=== PATIENT | female | born 1995 | race Caucasian/White ===

== ENCOUNTER 2022-12-06 18:10 | Inpatient (IN) | payer OTHER, SELFPAY ==
[2022-12-06] MEDS: Lactated Ringers 1,000 ML 50 ML IV (19:17)
[2022-12-06 19:33] LABS: ROM Internal Control Test YES-OK TO RESULT pt. (Internal QC)
[2022-12-06 19:34] LABS: ROM Patient Test POSITIVE (Negative)
[2022-12-06 20:21] VITALS: BMI 37.8
[2022-12-06 20:33] LABS: Absolute Lymphocyte Count 1.97 X10^3/uL (0.83-4.51); Absolute Neutrophil Count 8.8 X10^3/uL (2.0-7.7); Basophil# 0.04 X10^3/uL; Basophil% 0.3 % (0-1); Eosinophil# 0.15 X10^3/uL; Eosinophils% 1.3 % (0-5); Hematocrit 35.4 % (37-47); Hemoglobin 11.5 g/dL (12.0-15.0); Lymphocyte # 1.97 X10^3/ul (0.83-4.51); Mean Corp Hgb Conc 32.5 g/dL (32-36); Mean Corpuscular Hgb 28.7 pg (27.0-32.0); Mean Corpuscular Volume 88.3 fL (81-99); Mean Platelet Vol. 11.1 fl (6.2-12.0); Monocyte# 0.57 X10^3/uL; Monocyte% 4.9 % (0-10); NRBC Flagged by Analyzer 0 % (0-5); Neutrophil # 8.78 X10^3/uL (2.7-7.7); Neutrophil % 75.9 % (47-70); Platelet Count 184 K/mm3 (150-450); RBC Distribution Width CV 13.4 % (11.6-14.6); RBC Distribution Width SD 43.6 fl (35.1-43.9); Red Blood Count 4.01 M/mm3 (4.2-5.4); White Blood Count 11.6 K/mm3 (4.4-11.0)
[2022-12-06 21:01] LABS: Bedside Glucose 88 mg/dL (74-106)
[2022-12-06] MEDS: miSOPROStol 25 MCG TABLET PO (21:13)
[2022-12-06 21:15] VITALS: BP 147/67; PULSE 96; TEMP 36.6; O2SAT 98
[2022-12-06 21:17] VITALS: PULSE 88; O2SAT 97
[2022-12-06 21:55] LABS: Bedside Glucose 98 mg/dL (74-106)
[2022-12-07] VITALS (69 sets, daily range): BP systolic 111–165; BP diastolic 57–93; PULSE 89–135; TEMP 36.1–36.8; O2SAT 91–100
[2022-12-07] MEDS: miSOPROStol 25 MCG TABLET PO ×2 (01:21→05:25)
[2022-12-07 01:45] LABS: Bedside Glucose 87 mg/dL (74-106)
[2022-12-07 05:51] LABS: Bedside Glucose 80 mg/dL (74-106)
--- NOTE | 2022-12-07 08:46 | US_ITS ---
STUDY: SECOND AND THIRD TRIMESTER OBSTETRICAL ULTRASOUND - LIMITED REASON FOR EXAM: Female, 27 years old NATALIA, size, presenting part LMP: 03/06/2022. PRIOR ULTRASOUND: None. TECHNIQUE: Transabdominal TECHNICAL QUALITY: Adequate. FINDINGS: There is a single intrauterine fetus. The fetus is in a cephalic presentation. There is demonstrated cardiac activity with a heart rate of 153 bpm. There is a normal amniotic fluid volume. The largest amniotic fluid pocket measures 2.7 cm. The amniotic fluid index (NATALIA) is 7.5 cm. The placenta is fundal in location. There are Grade 3 placental changes. The cervix length was not measured due to head positioning. BIOMETRY: BPD: 9.6 cm: 39 weeks, 1 days HC: 35 cm: 40 weeks, 5 days AC: 36.4 cm: 40 weeks, 2 days FL: 7.9 cm: 40 weeks, 1 days Age by LMP: 39 weeks, 3 days. SHELLY by LMP: 12/11/2022. age by current US: 40 weeks, 0 days. SHELLY by current US: 12/07/2022. Estimated weight: 4013 grams, +/- 602 grams, 86 percentile. US/OB Limited With Biometrics IMPRESSION: Single live uterine gestation with a mean gestational age of 40 weeks. Electronically Signed: Lefty Butterfield MD at 10:13 [facility] ,
[2022-12-07 10:10] LABS: Bedside Glucose 118 mg/dL (74-106)
[2022-12-07] MEDS: Oxytocin 15 Units/NS 250ml 15 UNITS/250 ML IV.SOLN 2 UNITS IV (10:15)
--- NOTE | 2022-12-07 11:18 | PN_ITS ---
Progress Note Patient brought in to hospital after 33 hours of ruptured membranes confirmed by NTZ stick at home, and ROM test in hospital. FHR category I. # doses of oral cytotec given and plan for Pitcoin. Patient requesting to eat and given a light fat free meal. Patient pressing for use of Dueñas bulb as evidently coached by her integrity director. Advised I did not think it prudent after 48 hours of ROM to use a Foreign body as I felt it would accelerate the chances of chorioamnionitis, and risks of chorio reviewed including infection, uterine inefficiency leading to hemorrhage etc. After explaining all above, patient appeared to understand my hesitation. So far FHR catgory I throughout.
[2022-12-07 11:35] LABS: Bedside Glucose 127 mg/dL (74-106)
[2022-12-07 13:05] LABS: Bedside Glucose 86 mg/dL (74-106)
[2022-12-07 14:06] LABS: Bedside Glucose 117 mg/dL (74-106)
[2022-12-07 15:36] LABS: Bedside Glucose 82 mg/dL (74-106)
[2022-12-07 16:25] LABS: Bedside Glucose 106 mg/dL (74-106)
--- NOTE | 2022-12-07 18:27 | PCM.HP.OB ---
HPI - General General Date of Admission: 12/06/22 Date of Service: 12/07/22 Chief Complaint: Ruptured membranes HPI Narrative TORY HART, is a 27 F who presents on the recommendation of Chey;A medical anthropology director with whom she had been receiving care because her membranes have been ruptured at home for 33 hours and she has not made much progress into active labor. Fluid has been clear. movements have continued. There has been no bleeding. She has received all her care with this medical anthropology director however said senior agricultural assistant states that her glucose tolerance test was abnormal making her gestational diabetic and that she made drastic changes to her diet following which her fasting and 2-hour postprandial sugars were normal. She was unable to give me actual numbers except for the test numbers which were 160 and 159. She reported only one value for the 3-hour glucose tolerance test. Membrane rupture was confirmed with nitrazine swab. Membranes ruptured at 9 AM on December 05 and she presented in the evening of December 06 at approximately 33 hours apparently the patient had declined to come into the hospital before and had tried nipple stimulation movement etc. Maternal Data Information Final SHELLY: 12/11/22 Gestational age: [address] [facility] Medical History (Updated 12/07/22 @ 18:[address] Roxann Gonzalez MD) Gestational diabetes Home Medications [id number] 1 mg tablet 1 tab PO DAILY 12/06/22 [History Last Taken 12/06/22] Allergy/AdvReac Type Severity Reaction Status Date / Time No Known Allergies Allergy Verified 12/06/22 20:10 Surgical History (Updated 12/06/22 @ 20:13 by Fifi Reilly) [place] teeth removed Social History Smoking Status: Never smoker History Elective abortions Hx Para 0 Spontaneous abortions Hx # Term Pregnancies Ectopic pregnancies Hx # Pregnancies Multiple births # of living children NST FHR Rate Baby A Baseline: 140 Variability:: Moderate Accelerations:: 15 x 15 Decelerations:: None NST Reactive:: Yes FHR Category:: Category I ROS ROS Narrative Review of systems is entirely negative Vital Signs Vital Signs Vital Signs: 12/06/22 21:15 12/06/22 21:15 12/06/22 21:17 Temperature Temperature Source Pulse Rate 96 88 Blood Pressure 147/67 H BP Systolic 147 BP Diastolic 67 Pulse Ox 12/06/22 21:17 12/06/22 21:15 12/06/22 21:15 Temperature Temperature Source Temporal Pulse Rate Blood Pressure BP Systolic BP Diastolic Pulse Ox 97 98 12/06/22 21:15 12/07/22 00:11 12/07/22 00:11 Temperature 97.9 F 97.3 F L Temperature Source Temporal Pulse Rate Blood Pressure BP Systolic BP Diastolic Pulse Ox 12/07/22 01:20 12/07/22 01:20 12/07/22 01:20 Temperature Temperature Source Pulse Rate 104 H Blood Pressure 120/62 BP Systolic 120 BP Diastolic 62 Pulse Ox 96 12/07/22 01:20 12/07/22 03:08 12/07/22 03:08 Temperature Temperature Source Temporal Pulse Rate 89 Blood Pressure BP Systolic BP Diastolic Pulse Ox 98 12/07/22 03:08 12/07/22 04:12 12/07/22 04:12 Temperature 97.3 F L Temperature Source Temporal Pulse Rate Blood Pressure BP Systolic BP Diastolic Pulse Ox 97 12/07/22 04:12 12/07/22 05:26 12/07/22 05:26 Temperature 97.1 F L Temperature Source Pulse Rate 106 H Blood Pressure 141/86 H BP Systolic 141 BP Diastolic 86 Pulse Ox 12/07/22 05:29 12/07/22 05:29 12/07/22 05:26 Temperature Temperature Source Temporal Pulse Rate 98 Blood Pressure BP Systolic BP Diastolic Pulse Ox 98 12/07/22 05:26 12/07/22 06:26 12/07/22 06:26 Temperature 97.9 F 97.0 F L Temperature Source Temporal Pulse Rate Blood Pressure BP Systolic BP Diastolic Pulse Ox 12/07/22 08:06 12/07/22 08:06 12/07/22 08:06 Temperature Temperature Source Pulse Rate 100 Blood Pressure 131/89 H BP Systolic 131 BP Diastolic 89 Pulse Ox 98 12/07/22 08:06 12/07/22 08:43 12/07/22 08:43 Temperature 97.7 F L 97.7 F L Temperature Source Temporal Pulse Rate Blood Pressure BP Systolic BP Diastolic Pulse Ox 12/07/22 09:43 12/07/22 09:43 12/07/22 09:45 Temperature 97.9 F Temperature Source Temporal Pulse Rate Blood Pressure 129/83 H BP Systolic 129 BP Diastolic 83 Pulse Ox 12/07/22 09:45 12/07/22 09:45 12/07/22 10:58 Temperature Temperature Source Pulse Rate 120 H Blood Pressure 137/71 H BP Systolic 137 BP Diastolic 71 Pulse Ox 97 12/07/22 10:58 12/07/22 10:58 12/07/22 10:59 Temperature Temperature Source Temporal Pulse Rate 109 H 117 H Blood Pressure BP Systolic BP Diastolic Pulse Ox 12/07/22 10:59 12/07/22 10:58 12/07/22 12:36 Temperature 97.7 F L Temperature Source Pulse Rate Blood Pressure 135/93 H BP Systolic 135 BP Diastolic 93 Pulse Ox 98 12/07/22 12:37 12/07/22 12:37 12/07/22 12:36 Temperature Temperature Source Temporal Pulse Rate 117 H Blood Pressure BP Systolic BP Diastolic Pulse Ox 98 12/07/22 12:36 12/07/22 12:36 12/07/22 13:06 Temperature 97.2 F L Temperature Source Pulse Rate Blood Pressure 130/81 H BP Systolic 130 BP Diastolic 81 Pulse Ox 99 12/07/22 13:06 12/07/22 14:17 12/07/22 14:17 Temperature 97.5 F L Temperature Source Temporal Pulse Rate 115 H Blood Pressure BP Systolic BP Diastolic Pulse Ox 12/07/22 14:19 12/07/22 14:19 12/07/22 15:08 Temperature Temperature Source Pulse Rate 96 Blood Pressure 131/77 H 115/59 L BP Systolic 131 115 BP Diastolic 77 59 Pulse Ox 12/07/22 15:08 12/07/22 15:08 12/07/22 15:08 Temperature Temperature Source Temporal Pulse Rate 92 Blood Pressure BP Systolic BP Diastolic Pulse Ox 98 12/07/22 15:08 12/07/22 15:59 12/07/22 15:59 Temperature 98.2 F Temperature Source Temporal Pulse Rate Blood Pressure 154/82 H BP Systolic 154 BP Diastolic 82 Pulse Ox 12/07/22 15:59 12/07/22 15:59 12/07/22 16:53 Temperature 97.0 F L Temperature Source Pulse Rate 102 H Blood Pressure 141/74 H BP Systolic 141 BP Diastolic 74 Pulse Ox 12/07/22 16:53 12/07/22 16:53 12/07/22 16:53 Temperature Temperature Source Temporal Pulse Rate 90 Blood Pressure BP Systolic BP Diastolic Pulse Ox 98 12/07/22 16:53 12/07/22 18:06 12/07/22 18:07 Temperature 97.5 F L Temperature Source Temporal Pulse Rate Blood Pressure 139/86 H BP Systolic 139 BP Diastolic 86 Pulse Ox 12/07/22 18:06 12/07/22 18:07 Temperature 97.5 F L Temperature Source Pulse Rate 97 Blood Pressure BP Systolic BP Diastolic Pulse Ox Weight Weight: 227 lb Body Mass Index (BMI) 37.8 Physical Exam Const alert and well nourished General Appearance: cooperative, comfortable and well kempt HEENT normocephalic Eyes PERRL and EOMs intact bilaterally Neck full ROM Resp clear to auscultation bilaterally Cardio regular rate and regular rhythm GI normal to inspection, nondistended, normoactive bowel sounds, soft to palpation and non-tender no CVA tenderness Extremity normal to inspection, no calf tenderness and no pedal edema Labs Labs Labs: Blood Type A NEGATIVE Antibody Screen NEGATIVE Hct 35.4 % (37-47) L Hgb 11.5 g/dL (12.0-15.0) L Obstetrics US Assessment & Plan (1) 39 weeks gestation of : COMMENT: Misoprostol administration, likely Pitocin use to induce labor. Patient was counseled on moving on with labor induction because she had already been ruptured for a long time and delays would increase the risk of uterine and infection with an adverse effect on uterine activity both for delivering the fetus and for controlling bleeding . (2) Prolonged rupture of membranes: (3) Gestational diabetes mellitus (GDM) affecting , antepartum: (4) Insufficient care: PLAN: Plan Admit for cervical ripening and labor induction in anticipation of spontaneous vaginal delivery. On December 07 ultrasound was ordered that confirmed cephalic presentation and an absence of macrosomia
[2022-12-07] MEDS: LACTATED RINGERS 500 ML 999 ML IV (18:33)
[2022-12-07 19:05] LABS: Bedside Glucose 112 mg/dL (74-106)
[2022-12-07] MEDS: fentaNYL-bupivacaine (epidural) 100 ML BAG EPIDURAL (19:26)
[2022-12-07] MEDS: Lactated Ringers 1,000 ML 200 ML IV (20:00)
[2022-12-07 20:06] LABS: Bedside Glucose 122 mg/dL (74-106)
[2022-12-07 20:31] LABS: Bedside Glucose 128 mg/dL (74-106)
[2022-12-07] MEDS: miSOPROStol 200 MCG Tablet 1000 MCG RC (21:25)
--- NOTE | 2022-12-07 21:31 | EX.PCM.OBRPT ---
Maternal Data Information Gestational age: 39.3 Doctor Who Attended Delivery: Roxann Gonzalez Vaginal Delivery Maternal Presentation Maternal Presentation: Medically Indicated Induction Maternal Presentation: 33 hours SROM, no labor Type of Induction: Pitocin and Cytotec Operative Information Date of Procedure: 12/07/22 Pre-Operative Diagnosis: Term IUP, Prolonged ROM, Gestational diabetes - possibly Post-Operative Diagnosis: Same Surgery / Procedure Performed: Spontaneous Vaginal Delivery Type of Anesthesia: Epidural Estimated Blood Loss: 400ml Time of Delivery: 21:06 Findings Presentation: MIKAEL Amniotic Membrane Rupture Type: Spontaneous Time of Membrane Rupture: 0900 on 12/05/2022 Amniotic Fluid Description: Clear Placental Delivery Description: Expressed Placenta Disposition: [facility] Cord Vessel Description: 3 Vessels Cord Entanglement: None Infant A Gender: Female (1 minute): 9 (5 minute): 9 Delayed Cord Clamping: Yes Post Vaginal Delivery Medications Given After Delivery: IV Pitocin Laceration: 2nd degree Complication Complications: None Admit VTE Documentation VTE Present on Admission: No VTE Mechan Device Prophylaxis: None VTE Pharm Prophylaxis Ordered: No
[2022-12-07] MEDS: Methylergonovine 0.2 MG/ML Ampul IM (23:31)
[2022-12-08 00:40] VITALS: BP 117/58; PULSE 90; RESP 16; TEMP 36.6; O2SAT 98
[2022-12-08 03:51] VITALS: BP 112/48; PULSE 83; RESP 16; TEMP 36.9
[2022-12-08 05:27] LABS: Hemoglobin 10.4 g/dL (12.0-15.0); Mean Corp Hgb Conc 33.5 g/dL (32-36); Mean Corpuscular Volume 86.4 fL (81-99); Mean Platelet Vol. 11.5 fl (6.2-12.0); Platelet Count 156 K/mm3 (150-450); RBC Distribution Width CV 13.2 % (11.6-14.6); RBC Distribution Width SD 41.3 fl (35.1-43.9); Red Blood Count 3.59 M/mm3 (4.2-5.4); White Blood Count 13.6 K/mm3 (4.4-11.0)
[2022-12-08] MEDS: Ibuprofen 600 MG Tablet PO ×3 (08:06→22:35)
[2022-12-08 08:08] VITALS: BP 117/61; PULSE 85; RESP 16; TEMP 37.3
[2022-12-08 12:47] VITALS: BP 122/64; PULSE 93; RESP 16; TEMP 36.9
--- NOTE | 2022-12-08 12:59 | CHAPLAIN ---
Type of Pastoral Visit _x__ Initial Visit ___ Follow-up Visit ___ On-call Visit ___ General Patient Visit ___ Spiritual Assessment ___ Family Conference ___ Bereavement ___ Rapid Response ___ Code Blue ___ Other (describe below) Pastoral Care Referral From _x__ Patient _x__ Family ___ Nurse ___ Physician ___ Wood Finisher Apprentice ___ Hull Sorter ___ Other (describe below) Sacrament/Intervention _x__ Active listening ___ Anointing ___ Temple ___ Bereavement ___ Communion ___ Denia exploration ___ ___ Life review _x__ Prayer ___ Reconciliation ___ Sacrament of Sick ___ Supportive presence ___ Wedding ___ Other (describe below) Pastoral Comments
--- NOTE | 2022-12-08 16:15 | PCM.PN.OB ---
Subjective Subjective Good pain control. Voiding without difficulty. Tolerating regular diet Lochia small. baby nursing well. Objective Data Objective Data Looks well and moving easily. Has remained afebrile since post op Vital Signs: Vital Signs Temp Pulse Resp BP Pulse Ox O2 Del Method 98.5 F 93 16 122/64 H 98 Room Air 12/08/22 12:47 12/08/22 12:47 12/08/22 12:47 12/08/22 12:47 12/08/22 00:40 12/08/22 12:47 Oxygen Delivery Method Room Air Weight: 227 lb Body Mass Index (BMI) 37.8 Intake & Output: Intake and Output for Last 24 Hours 12/06/22 12/07/22 12/08/22 23:59 23:59 23:59 Intake Total 2.5 / 2.5 1979.83 / Output Total 700 / 700 400 / 400 Balance 2.5 / 2.5 1280.83 / 1280.83 -400 / -400 Lab / Micro Data Result Diagrams: 12/08/22 05:20 Labs: Laboratory Results - last 24 hr 12/07/22 16:02: POC Glucose 106 12/07/22 18:08: POC Glucose 112 H 12/07/22 18:59: POC Glucose 122 H 12/07/22 20:05: POC Glucose 128 H 12/08/22 01:00: Screen NEGATIVE, Baby's Blood Type A POSITIVE, Baby's BIANCA NEGATIVE 12/08/22 05:20: WBC 13.6 H, RBC 3.59 L, Hgb 10.4 L, Hct 31.0 L, MCV 86.4, MCH 29.0, MCHC 33.5, RDW Std Deviation 41.3, RDW Coeff of Veronica 13.2, Plt Count 156, MPV 11.5 Physical Exam Const alert, oriented x3 and no apparent distress General Appearance: cooperative HEENT normocephalic Eyes PERRL and EOMs intact bilaterally Resp normal respiratory effort and clear to auscultation bilaterally Cardio regular rate, regular rhythm and no murmurs GI non-tender GI Narrative: rounded.soft uterus firm at u-2 Back/Spine Back/Spine Narrative: No CVAT Extremity no calf tenderness and no pedal edema Neuro oriented x3 and no sensory deficits noted Assessment & Plan (1) (spontaneous vaginal delivery): (2) Insufficient care: PLAN: Plan Bedside scan done for night RN concern about more lochia trickling than expected. Full bladder. Uterus well visualized with thin endometrial stripe all the way through cervix . No evidence of any retained placenta or clot. Reassured. Continue support. Likely home tomorrow. Baby needs observation given prolonged ROM and no ATB coverage due to GBBS neg status. Visit was at 0730 today.
--- NOTE | 2022-12-08 16:29 | DS.PCM_ITS ---
Providers Date of Admission: 12/06/22 Date of Discharge: 12/09/22 Primary Care Physician: Dr. Clyde Teresa DO Reason For Visit: VAGINAL DELIVERY Diagnosis Discharge Diagnosis (1) (spontaneous vaginal delivery): Status: Acute Code(s): O80 - Encounter for full-term uncomplicated delivery (2) Insufficient care: Status: Resolved Code(s): O09.30 - Supervision of with insufficient care, unspecified trimester Plan Bedside scan done for night RN concern about more lochia trickling than exp ected. Full bladder. Uterus well visualized with thin endometrial stripe all the way through cervix . No evidence of any retained placenta or clot. Reassured. Continue support. Likely home tomorrow. Baby needs observation given prolonged ROM and no ATB coverage due to GBBS neg status. Visit was at 0730 today. Medications at Discharge Home Medications [id number] 1 mg tablet 1 tab PO DAILY 12/06/22 ibuprofen 600 mg tablet 600 mg PO Q6H PRN PRN Pain Score 1-3 5 days #20 tabs 12/08/22 Hospital Course Summary of Care Provided Minutes Spent on Discharge: 20 Hospital Course: Patient was sent in at 33 hours s/p ruptured membranes with unsuccessful efforts at induction of labor using nipple stimulation etc. All care with displayer merchandise. Patient was afebrile on admission with FHR category I. She received 3 doses of misoprostol for cevical ripening, followed by Pitocin, on which she progressed well through a short active phase to of a Female infant 8lb 10 oz., with Apgars of 9 & 9. Patient used nitrous oxide, then an epidural for pain control. 2nd degree midline laceration repaired in standard fashion. Normal EBL. Delivery followed ~60 hours of ROM. FHR remained unremarkable throughout. Weight / BMI Weight Weight: 227 lb Body Mass Index (BMI) 37.8 ABG / Lab / Microbiology Data Result Diagrams: 12/08/22 05:20 Laboratory: Laboratory Results - last 24 hr 12/07/22 18:08: POC Glucose 112 H 12/07/22 18:59: POC Glucose 122 H 12/07/22 20:05: POC Glucose 128 H 12/08/22 01:00: Screen NEGATIVE, Baby's Blood Type A POSITIVE, Baby's BIANCA NEGATIVE 12/08/22 05:20: WBC 13.6 H, RBC 3.59 L, Hgb 10.4 L, Hct 31.0 L, MCV 86.4, MCH 29.0, MCHC 33.5, RDW Std Deviation 41.3, RDW Coeff of Veronica 13.2, Plt Count 156, MPV 11.5 D/C Instructions Discharge Diet: No restrictions Discharge Activity: May Not Drive and May Shower Return to work on: 12/22/23 May resume sexual activity in: 6-8 weeks Lifting Restricted to (Lbs): 10 Call your doctor if your incision/area has: Continuous Slow Oozing, Sudden Increased Bleeding and Increased Pain/ Swelling Call your doctor if you observe: Fever of 101 or Higher, Using more than 1 pad per hour and Uncontrolled pain Please Follow Up With: Clyde Teresa DO When: 6 weeks. See Manager Of Network at 2 weeks. Meaningful Use Info Meaningful Use Diagnoses (Choose all that apply): None applicable Discharge Plan Admission Admit Date/Time: 12/06/22 18:10 Primary Reason for Your Visit: Prolonged rupture of membranes, No labor Attending Provider: Roxann Gonzalez Primary Care Provider: Clyde Teresa Instructions Forms: Information, [place] Information Patient Instructions: After a Vaginal Discharge Orders/Prescriptions Prescriptions: New ibuprofen 600 mg Tablet 600 mg PO Q6H PRN PRN (Reason: Pain Score 1-3) 5 Days Qty: 20 0RF No Action 1 mg Tablet 1 tab PO DAILY Referrals / Follow Up: Clyde Teresa DO [Primary Care Provider] - Disposition Disposition (needs filled in before D/C Order can be placed): Home, Self Care
[2022-12-08 16:30] VITALS: BP 120/60; PULSE 92; RESP 16; TEMP 36.3
[2022-12-08 20:15] VITALS: BP 101/44; PULSE 79; RESP 17; TEMP 36.5
[2022-12-09 01:05] VITALS: BP 124/59; PULSE 92; RESP 16; TEMP 36.3
--- NOTE | 2022-12-09 07:05 | PCM.PN.BLA ---
Progress Note Excellent pain control, nursing going well. Lochia now very light. Physical Exam Const alert, oriented x3 and no apparent distress General Appearance: cooperative HEENT normocephalic Eyes PERRL and EOMs intact bilaterally Resp normal respiratory effort Cardio no murmurs GI non-tender GI Narrative: rounded.soft uterus firm at u-2 Back/Spine Back/Spine Narrative: No CVAT Extremity no calf tenderness and no pedal edema Neuro oriented x3 and no sensory deficits noted Assessment & Plan Assessment/Plan (1) (spontaneous vaginal delivery): PLAN: Post successful delivery. (2) Insufficient care: (3) Gestational diabetes mellitus (GDM) affecting , antepartum: (4) Prolonged rupture of membranes: (5) 39 weeks gestation of :
[2022-12-09 08:00] VITALS: BP 124/73; PULSE 67; RESP 18; TEMP 36.9
[2022-12-09] MEDS: Ibuprofen 600 MG Tablet PO (10:19)
--- NOTE | 2022-12-13 15:39 | NURSING ---
12/13/22 @ 7604: Follow up phone call. Pt. feeling good, very minimal lochia, no s+s reported. going very well, tongue tie revised after discharge and things have been going much better! Denies questions or concerns and reports being satisfied with hospital stay after being a CHEIKH from coil taper.
== END 2022-12-09 12:05 | disposition home or self-care (01) | DRG 807 ==
PROVIDERS: Admitting Provider Obstetrics & Gynecology Gynecology; PCP Student in an Organized Health Care Education/Training Program; Visit Provider Obstetrics & Gynecology Gynecology
DX: O76 Abnormality in fetal heart rate and rhythm complicating labor and delivery (principal); Z37.0 Single live birth; O24.420 Gestational diabetes mellitus in childbirth, diet controlled; Z3A.40 40 weeks gestation of pregnancy; O70.1 Second degree perineal laceration during delivery; O42.92 Full-term premature rupture of membranes, unspecified as to length of time between rupture and onset of labor
CPT/HCPCS: 59025; 59050; 76816; 82962; 84112; 85025; 85027; 85461; 86850; 86900; 86901; 99221; J7120; G0378; J2790

== ENCOUNTER → 2024-06-07 | Outpatient (CLI) | payer OTHER, SELFPAY ==
--- NOTE | 2024-06-07 07:25 | US_ITS ---
STUDY: FIRST TRIMESTER OBSTETRICAL ULTRASOUND REASON FOR EXAM: Female, 28 years old . Dating. LMP: March 28, 2024. TECHNIQUE: Transvaginal TECHNICAL QUALITY: Adequate. PRIOR ULTRASOUND: None. FINDINGS: There is visualization of a single gestational sac in a normal intrauterine position. The mean sac diameter (MSD) measures 4.2 cm, indicating an estimated gestational age (EGA) of 9 weeks, 5 days. The gestational sac shape is within normal limits. There is a visualized yolk sac. The yolk sac measures 5 mm.. There is visualization of the placenta. Posterior location. There is visualization of a live embryo. The crown-rump length (CRL) measures 3.2 cm, indicating an estimated gestational age (EGA) of 9 weeks, 6 days. There is demonstrated cardiac activity with a heart rate of 169 bpm. The estimated gestation age (EGA) by LMP is 10 weeks, 1 days. The estimated date of delivery (SHELLY) by LMP is January 02, 2025. The estimated gestation age (EGA) by US is 9 weeks, 6 days. The estimated date of delivery (SHELLY) by US is January 04, 2025. The uterus measures 13.5 cm x 10.6 cm x 7.9 centimeters. There is no demonstrated uterine fibroid. The cervix is closed. The right ovary measures 2.5 cm x 1.5 cm x 1.5 cm. There is no right ovarian cyst. There is no visualized right adnexal mass or complex lesion. The left ovary was not visualized. There is no fluid in the cul de sac. US/Transvaginal w/Preg US IMPRESSION: Single live intrauterine gestation with a mean gestational age of 9 weeks and 6 days. Electronically Signed: Lefty Butterfield MD at 14:32 EDT ,
== END | disposition home or self-care (01) ==
PROVIDERS: PCP Student in an Organized Health Care Education/Training Program; Referring Provider Obstetrics & Gynecology; Visit Provider Obstetrics & Gynecology
DX: O09.91 Supervision of high risk pregnancy, unspecified, first trimester (principal); Z3A.00 Weeks of gestation of pregnancy not specified
CPT/HCPCS: 76817

== ENCOUNTER → 2024-06-13 | Outpatient (CLI) | payer OTHER, SELFPAY | END | disposition home or self-care (01) | LOC: LABSPEC 17:10 | PROVIDERS: PCP Student in an Organized Health Care Education/Training Program; Referring Provider Obstetrics & Gynecology; Visit Provider Obstetrics & Gynecology | DX: O09.91 Supervision of high risk pregnancy, unspecified, first trimester (principal); Z3A.00 Weeks of gestation of pregnancy not specified | CPT/HCPCS: 87086 ==

== ENCOUNTER 2024-06-18 11:00 | Outpatient (RCR) | payer OTHER, SELFPAY | END 2024-06-18 19:00 | disposition home or self-care (01) | LOC: PT 11:00 | PROVIDERS: PCP Student in an Organized Health Care Education/Training Program; Referring Provider Nurse Practitioner Family; Visit Provider Nurse Practitioner Family | DX: Z34.90 Encounter for supervision of normal pregnancy, unspecified, unspecified trimester (principal); Z3A.00 Weeks of gestation of pregnancy not specified | CPT/HCPCS: 97162 ==

== ENCOUNTER → 2024-08-17 | Outpatient (CLI) | payer OTHER, SELFPAY ==
--- NOTE | 2024-08-17 07:58 | US_ITS ---
PROCEDURE: SECOND AND THIRD TRIMESTER OBSTETRICAL ULTRASOUND REASON FOR EXAM: Female, 28 years old. Evaluate anatomy. LMP: 03/28/2024 TECHNIQUE: Transabdominal and Transvaginal PRIOR ULTRASOUND: 06/07/2024 FINDINGS: There is a single intrauterine fetus. The fetus is in a vertex presentation. There is demonstrated cardiac activity with a heart rate of 145 bpm. There is a normal amniotic fluid volume. The largest amniotic fluid pocket measures 5.5 cm. The amniotic fluid index (NATALIA) is not measured. The placenta is posterior and fundal in location and is not low lying. There are Grade 0 placental changes. The cervix measures 6.7 cm in length. The adnexal regions are not visualized. BIOMETRY: BPD: 4.8 cm: 20 weeks, 3 days HC: 17.9 cm: 20 weeks, 3 days OFD: 20 weeks, 5 days. AC: 15.5 cm: 20 weeks, 4 days FL: 3.2 cm: 20 weeks, 0 days CI: 77% FL/BPD: 67.3% FL/HC: 17.8% FL/AC: 20.7% HC/AC: 1.16 age by current US: 20 weeks, 2 days. SHELLY by current US: 01/02/2025. Estimated weight: 349) grams, +/- 52 grams, 48 %. age by prior US: 20 weeks, 0 days. SHELLY by prior US: 01/04/2025. Age by LMP: 20 weeks, 2 days. SHELLY by LMP: 01/02/2025. ANATOMY: Cranium: Normal lateral ventricles measuring 7 mm. Normal choroid plexus. Normal cerebellum measuring 2.1 cm. Normal cisterna measuring 6 mm. Normal face, nose and lips. Chest: Normal 4-chamber heart. Abdomen/Pelvis: Normal diaphragm. Normal stomach. Normal abdominal wall. Normal cord insertion. Normal 3 vessel cord. Normal kidneys. Normal bladder. Spine: Normal cervical spine. Normal thoracic spine. Normal lumbar spine. Normal sacrum. Extremities: Normal bilateral upper extremities. Normal bilateral lower extremities. The fetus appears to be female. US/OB Anatomy w/ Transvaginal IMPRESSION: Single live intrauterine fetus in cephalic presentation with an estimated gestational age of 20 weeks and 2 days. The SHELLY is 01/02/2025. Electronically Signed: Goldy Ortega MD at 11:23 EDT ,
== END | disposition home or self-care (01) ==
LOC: US 07:58
PROVIDERS: PCP Student in an Organized Health Care Education/Training Program; Referring Provider Advanced Practice Midwife; Visit Provider Advanced Practice Midwife
DX: O09.91 Supervision of high risk pregnancy, unspecified, first trimester (principal); Z3A.00 Weeks of gestation of pregnancy not specified
CPT/HCPCS: 76805; 76817

== ENCOUNTER → 2024-10-12 | Outpatient (CLI) | payer OTHER, SELFPAY | END | disposition home or self-care (01) | LOC: BWCLAB 14:17 | PROVIDERS: PCP Student in an Organized Health Care Education/Training Program; Referring Provider Advanced Practice Midwife; Visit Provider Advanced Practice Midwife | DX: O09.91 Supervision of high risk pregnancy, unspecified, first trimester (principal); Z3A.00 Weeks of gestation of pregnancy not specified | CPT/HCPCS: 36415; 86850; 86900; 86901 ==